=== PATIENT | female | born 1970 | race Two or more races ===

== ENCOUNTER 2023-10-12 13:53 | Outpatient (CLI) | payer OTHER | END 2023-10-12 14:05 | disposition home or self-care (01) | LOC: SONOGRAMA 13:53 | PROVIDERS: ATTEND Pathology Anatomic Pathology & Clinical Pathology | DX: E04.2 Nontoxic multinodular goiter (principal); D34 Benign neoplasm of thyroid gland; E07.89 Other specified disorders of thyroid ==